=== PATIENT | male | born 1960 | race Caucasian/White ===

== ENCOUNTER 2018-10-03 10:59 | Emergency (ER) | payer MEDICARE, MEDICAID ==
[~2018-10-03] VITALS: Ht 175.3 cm; Wt 81.8 kg
[2018-10-03 10:59] VITALS: BP 132/58
[~2018-10-03 10:59] MED LIST: AMBI10TA PO; DEPA1TAB3 PO; SERO1TAB2 PO; SERO400T PO; ZYPR20TA PO
[2018-10-03] MEDS ORDERED: RISP50INJ IM (11:06)
[2018-10-03] MEDS ORDERED: OLAN20TA14 PO (11:06)
== END 2018-10-03 12:09 | disposition home or self-care (01) ==
LOC: M ED 10:59
DX: F20.9 Schizophrenia, unspecified (principal); Z72.0 Tobacco use; Z79.899 Other long term (current) drug therapy

== ENCOUNTER 2018-10-21 08:47 | Emergency (ER) | payer MEDICARE, MEDICAID ==
[~2018-10-21] VITALS: Ht 175.3 cm; Wt 86.4 kg
[2018-10-21 08:47] VITALS: BP 125/69
[~2018-10-21 08:47] MED LIST changes: +OLAN20TA14 PO; +RISP50INJ IM
== END 2018-10-21 09:22 | disposition home or self-care (01) ==
LOC: M ED 09:13
DX: F20.5 Residual schizophrenia (principal); Z72.0 Tobacco use; Z79.899 Other long term (current) drug therapy

== ENCOUNTER → 2018-12-27 | Outpatient (CLI) | payer MEDICARE, MEDICAID ==
[2018-12-27 14:30] LABS: ALBUMIN 4.1 GM/DL (3.2-5.2); ALT/SGPT 13 U/L (12-78); BILIRUBIN,TOTAL 2.5 MG/DL (0.2-1.0); BLOOD UREA NITROGEN 16 MG/DL (7-18); CALCIUM LEVEL 9.1 MG/DL (8.5-10.1); CARBON DIOXIDE LEVEL 28 MEQ/L (21-32); CHLORIDE LEVEL 107 MEQ/L (98-107); GLOMERULAR FILTRATION RATE > 60.0 (>56); GLUCOSE, FASTING 113 MG/DL (70-100); POTASSIUM SERUM 3.8 MEQ/L (3.5-5.1); SODIUM LEVEL 141 MEQ/L (136-145); TOTAL PROTEIN 6.2 GM/DL (6.4-8.2); VALPROIC ACID (DEPAKOTE) 74.4 UG/ML (50.0-100.0)
== END ==
LOC: M LAB 12:42
PROVIDERS: ATTEND Psychiatry & Neurology Psychiatry
DX: Z79.01 Long term (current) use of anticoagulants (principal)